=== PATIENT | female | born 1985 | race Asian ===

== ENCOUNTER 2016-09-26 00:31 | Emergency (ER) | payer OTHER ==
[2016-09-26 00:48] VITALS: BP 73/34; PULSE 60; TEMP 97.5; BMI 23.9
[2016-09-26] MEDS ORDERED: SODIUM CHLORIDE 1,000 ML IV STA (02:38)
== END 2016-09-26 02:46 | disposition left against medical advice (07) ==
LOC: JER 00:31
DX: Z53.21 Procedure and treatment not carried out due to patient leaving prior to being seen by health care provider (principal)
CPT/HCPCS: 99281-25